=== PATIENT | female | born 1990 | race African-American/Black ===

== ENCOUNTER 2023-02-16 19:00 | Inpatient (IN) | payer OTHER ==
[2023-02-16] MEDS ORDERED: DINOPROSTONE 10 MG VAGINAL SUPPOSITORY VG ONE (19:45)
[2023-02-16 20:09] LABS: BASO % 0.4 % (0-2.0); EOS % 0.4 % (0-4.5); HEMATOCRIT 41.1 % (32.4-45.2); HEMOGLOBIN 13.9 GM/dL (10.7-15.3); LYMPH % 25.5 % (8-40); MCH 27.7 pg (25.7-33.7); MCHC 33.8 g/dl (32.0-36.0); MEAN PLT VOLUME 9.1 fl (7.5-11.1); MONO % 13.5 % (3.8-10.2); NEUT % 60.2 % (42.8-82.8); PLATELET COUNT 245 10^3/uL (134-434); RBC 5.01 M/mm3 (3.60-5.2); RDW 14.6 % (11.6-15.6); WHITE BLOOD COUNT 8.1 K/mm3 (4.0-10.0)
[2023-02-16 20:17] LABS: INR 0.97 (0.83-1.09); PROTHROMBIN TIME (PATIENT) 11.2 SEC (9.7-13.0)
[2023-02-16 20:20] LABS: ACTIVATED PTT 27.5 SECONDS (25.2-36.5)
[2023-02-16 20:33] LABS: POTASSIUM 4.8 mmol/L (3.5-5.1)
[2023-02-16 20:34] LABS: CALCIUM 9.5 mg/dL (8.5-10.1)
[2023-02-16 20:38] LABS: CREATININE 0.6 mg/dL (0.55-1.3)
[2023-02-16 20:48] VITALS: BMI 34.9
[2023-02-16 21:28] LABS: HIV INTERPRETATION NEGATIVE (NEGATIVE)
[2023-02-17] MEDS ORDERED: ELECTROLYTE-148 SOLN 1,000 ML IV SCH (03:00)
[2023-02-17] MEDS ORDERED: PROMETHAZINE HCL 25 MG/1 ML VIAL IVPB ONE (03:00)
[2023-02-17] MEDS ORDERED: BUTORPHANOL TARTRATE 2 MG/ML VIAL IVPB ONE (03:00)
[2023-02-17] MEDS ORDERED: BUTORPHANOL TARTRATE 1 MG/ML VIAL ONE (03:11)
[2023-02-17] MEDS ORDERED: PROMETHAZINE HCL 25 MG/1 ML VIAL ONE (03:11)
[2023-02-17] MEDS ORDERED: OXYTOCIN 30 UNITS in 0.9% NS 30 UNIT/500 ML INFUS.BAG IVPB ONE (08:17)
[2023-02-17] MEDS ORDERED: OXYTOCIN 30 UNITS in 0.9% NS 30 UNIT/500 ML INFUS.BAG IVPB SCH (08:30)
[2023-02-17] MEDS ORDERED: FENTANYL/BUPIVACAINE/NS/PF - PCEA - 50 ML DISP.SYRIN EP ONE ×3 (11:14→20:26)
[2023-02-17] MEDS ORDERED: NALOXONE HCL 0.4 MG/ML VIAL IVPUSH PRN (12:39)
[2023-02-17] MEDS ORDERED: FENTANYL/BUPIVACAINE/NS/PF - PCEA - 50 ML DISP.SYRIN EP SCH (13:00)
[2023-02-17 14:04] LABS: POC NITRAZINE NEG
[2023-02-17 14:05] LABS: POC NITRAZINE POS
[2023-02-17] MEDS ORDERED: LIDO 2%/EPI 1:200000 PRESRVFRE (20 ML SDVIAL) ONE (22:48)
[2023-02-17] MEDS ORDERED: ACETAMINOPHEN 325 MG TABLET (FP) PO PRN (22:55)
[2023-02-17] MEDS ORDERED: SENNOSIDES/DOCUSATE COMBO (SENNA PLUS) TABLET (UD) PO PRN (22:55)
[2023-02-17] MEDS ORDERED: IBUPROFEN 800 MG/8 ML IJ IVPB PRN (22:55)
[2023-02-17] MEDS ORDERED: ONDANSETRON 4 MG/2 ML VIAL IVPB PRN (22:55)
[2023-02-17] MEDS ORDERED: morphine SULFATE/PF 1 MG/2 ML (2cc Syringe - QUVA) ONE (23:08)
[2023-02-18] MEDS ORDERED: IBUPROFEN 800 MG/8 ML IJ IVPB ONE (02:13)
[2023-02-18] MEDS ORDERED: OXYTOCIN 20 UNITS in 0.9% NS 20 UNIT/1,000 ML INFUS.BAG IV ONE (02:47)
[2023-02-18] MEDS: OXYTOCIN 20 UNITS in 0.9% NS 20 UNIT/1,000 ML INFUS.BAG IV SCH ×2 (02:50→12:35)
[2023-02-18] MEDS ORDERED: ACETAMINOPHEN 1000 MG/100 ML BAG IVPB PRN (06:00)
[2023-02-18 08:43] LABS: HEMATOCRIT 37.3 % (32.4-45.2); HEMOGLOBIN 12.4 GM/dL (10.7-15.3); MCH 27.3 pg (25.7-33.7); MCHC 33.2 g/dl (32.0-36.0); MEAN CELL VOLUME 82.3 fl (80-96); MEAN PLT VOLUME 8.8 fl (7.5-11.1); PLATELET COUNT 222 10^3/uL (134-434); RBC 4.53 M/mm3 (3.60-5.2); RDW 14.5 % (11.6-15.6); WHITE BLOOD COUNT 28.3 K/mm3 (4.0-10.0)
[2023-02-18 10:21] LABS: ANISOCYTOSIS 0; MACROCYTOSIS 0
[2023-02-18] MEDS: IBUPROFEN 600 MG TABLET (FP) PO PRN (13:14)
[2023-02-18] MEDS ORDERED: BISACODYL 10 MG SUPP.RECT RC PRN (22:55)
[2023-02-19] MEDS: IBUPROFEN 600 MG TABLET (FP) PO PRN ×3 (00:09→18:08)
[2023-02-19 09:25] LABS: BASO % 0.1 % (0-2.0); EOS % 0.5 % (0-4.5); HEMOGLOBIN 10.3 GM/dL (10.7-15.3); LYMPH % 14.8 % (8-40); MCH 27.4 pg (25.7-33.7); MCHC 32.3 g/dl (32.0-36.0); MEAN CELL VOLUME 84.7 fl (80-96); MEAN PLT VOLUME 9.3 fl (7.5-11.1); MONO % 5.1 % (3.8-10.2); NEUT % 79.5 % (42.8-82.8); PLATELET COUNT 216 10^3/uL (134-434); RBC 3.78 M/mm3 (3.60-5.2); RDW 14.6 % (11.6-15.6); WHITE BLOOD COUNT 16.5 K/mm3 (4.0-10.0)
[2023-02-19] MEDS: SIMETHICONE 80 MG TAB.CHEW (FP) PO PRN ×2 (09:42→18:08)
[2023-02-19] MEDS: oxyCODONE HCL 5 MG TABLET PO PRN (11:45)
[2023-02-19] MEDS: OXYTOCIN 20 UNITS in 0.9% NS 20 UNIT/1,000 ML INFUS.BAG IV SCH (21:17)
[2023-02-20] MEDS: oxyCODONE HCL 5 MG TABLET PO PRN (03:20)
[2023-02-20] MEDS: SIMETHICONE 80 MG TAB.CHEW (FP) PO PRN ×2 (03:20→22:02)
[2023-02-20] MEDS: IBUPROFEN 600 MG TABLET (FP) PO PRN ×3 (10:11→22:03)
[2023-02-20 10:32] VITALS: RESP 18
[2023-02-21] MEDS: IBUPROFEN 600 MG TABLET (FP) PO PRN (08:19)
[2023-02-21] MEDS: SIMETHICONE 80 MG TAB.CHEW (FP) PO PRN (08:26)
[2023-02-21 13:15] VITALS: BP 124/76; PULSE 82; TEMP 97.9
== END 2023-02-21 12:55 | disposition home or self-care (01) | DRG 540 ==
LOC: JLDR 19:00 → J3W 02-18 02:44
PROVIDERS: ADMIT Specialist; ATTEND Specialist
PROC: 10D00Z1 Extraction of Products of Conception, Low, Open Approach (ICD-10-PCS; principal; 2023-02-18)
DX: O48.0 Post-term pregnancy (principal); O62.1 Secondary uterine inertia; O34.13 Maternal care for benign tumor of corpus uteri, third trimester; O62.0 Primary inadequate contractions; Z3A.40 40 weeks gestation of pregnancy; Z37.0 Single live birth
CPT/HCPCS: 36415; 80048; 83986-QW; 85025; 85610; 85730; 86780; 86850; 86900; 86901; 87389; 88307-TC